=== PATIENT | female | born 2000 | race Caucasian/White ===

== ENCOUNTER 2022-01-31 21:40 | Emergency (ER) | payer MEDICAID ==
[2022-01-31 23:19] LABS: CORONAVIRUS COVID-19 NAA NEGATIVE (NEGATIVE)
[2022-01-31] MEDS ORDERED: Ketorolac 30 MG/ML SDV IM ONE (23:35)
== END 2022-01-31 23:55 | disposition home or self-care (01) ==
LOC: FB.ED 21:40
DX: J10.1 Influenza due to other identified influenza virus with other respiratory manifestations (principal); F17.210 Nicotine dependence, cigarettes, uncomplicated; Z20.822 Contact with and (suspected) exposure to COVID-19
CPT/HCPCS: 0241U; 96372; 99283; J1885

== ENCOUNTER 2022-12-17 18:12 | Emergency (ER) | payer MEDICAID ==
[2022-12-17] MEDS ORDERED: SUMAtriptan 6 MG/0.5 ML SDV SUBCUT ONE (19:49)
== END 2022-12-17 20:10 | disposition home or self-care (01) ==
LOC: FB.ED 18:12
DX: G43.909 Migraine, unspecified, not intractable, without status migrainosus (principal)
CPT/HCPCS: 96372; 99283; J3030

== ENCOUNTER 2024-03-10 23:20 | Emergency (ER) | payer SELFPAY | END 2024-03-11 01:19 | disposition home or self-care (01) | LOC: FB.ED 23:20 | DX: J06.9 Acute upper respiratory infection, unspecified (principal) | CPT/HCPCS: 87428-QW; 87651-QW; 99284 ==